=== PATIENT | female | born 1945 | race Caucasian/White ===

== ENCOUNTER 2017-06-22 11:14 | Outpatient (CLI) | payer MEDICARE, OTHER ==
[~2017-06-22 11:14] MED LIST: CRESTOR10 MG PO; SYNTHROID75 MCG PO; VIVELLE-DOT 00.05 MG TD
[2017-06-22 13:10] VITALS: BP 150/96; Ht 154.9 cm
== END 2017-06-22 13:12 ==
LOC: D.OPS 11:14
DX: M81.0 Age-related osteoporosis without current pathological fracture (principal)

== ENCOUNTER 2017-12-07 12:39 | Outpatient (CLI) | payer MEDICARE, OTHER ==
[~2017-12-07] VITALS: Ht 154.9 cm; Wt 52.3 kg
[2017-12-07 13:07] VITALS: BP 141/74; Ht 154.9 cm; Wt 52.3 kg
== END 2017-12-07 13:30 | disposition home or self-care (01) ==
LOC: D.OPS 12:39
DX: M81.0 Age-related osteoporosis without current pathological fracture (principal)

== ENCOUNTER 2018-06-05 10:09 | Outpatient (CLI) | payer MEDICARE, OTHER ==
[~2018-06-05] VITALS: Ht 154.9 cm; Wt 54.5 kg
[2018-06-05 11:16] VITALS: BP 129/84; Ht 154.9 cm; Wt 54.5 kg
== END 2018-06-05 11:25 | disposition home or self-care (01) ==
LOC: D.OPS 10:09
DX: M81.0 Age-related osteoporosis without current pathological fracture (principal); Z01.812 Encounter for preprocedural laboratory examination

== ENCOUNTER 2018-12-04 12:10 | Outpatient (CLI) | payer MEDICARE, OTHER ==
[~2018-12-04] VITALS: Ht 154.9 cm; Wt 52.3 kg
[2018-12-04] MEDS ORDERED: CELEBREX200 MG PO (12:32)
[2018-12-04 12:35] VITALS: BP 124/52; Ht 154.9 cm; Wt 52.3 kg
--- NOTE | 2018-12-04 12:53 | NUR ---
PT RECEIVED PROLIA 60 MG INJECTION AT 1244. PT LEFT UNIT AMBULATING AT 1251.
== END 2018-12-04 12:51 | disposition home or self-care (01) ==
LOC: D.OPS 12:10
PROVIDERS: ATTEND Emergency Medicine
DX: M81.0 Age-related osteoporosis without current pathological fracture (principal)

== ENCOUNTER 2019-06-12 12:23 | Outpatient (CLI) | payer MEDICARE, OTHER ==
[~2019-06-12] VITALS: Ht 154.9 cm; Wt 51.4 kg
[~2019-06-12 12:23] MED LIST changes: +CELEBREX200 MG PO
[2019-06-12] MEDS ORDERED: FLOMAX0.4 MG PO (12:48)
[2019-06-12 12:59] VITALS: BP 133/67; Ht 154.9 cm; Wt 51.4 kg
== END 2019-06-12 13:30 | disposition home or self-care (01) ==
LOC: D.OPS 12:23
PROVIDERS: ATTEND Emergency Medicine
DX: M81.0 Age-related osteoporosis without current pathological fracture (principal)